=== PATIENT | male | born 1960 | race Two or more races ===

== ENCOUNTER → 2020-08-29 | Day surgery (SDC) | payer OTHER ==
[~2020-08-29] MED LIST: ASPIRIN81 MG PO; ATORVASTATIN CA10 MG PO; FENTANYL CITRATE/PF 100MCG/2 ML INJ ONE; FISH OIL 1,0001 EAC2 PO; JANUMET XR 50-1 EAC1 PO; MIDAZOLAM HCL 2 MG/2 ML VIAL ONE; MULTI-VITAMIN1 EACH PO; OR PHACO EYE KIT ONE; PREOP PHACO EYE KIT ONE; VITAMIN D PO
[2020-08-29 16:22] VITALS: BP 122/86
== END | disposition home or self-care (01) ==
LOC: OR 12:12 → EDBD 18:00
PROVIDERS: ATTEND Ophthalmology
DX: H25.11 Age-related nuclear cataract, right eye (principal); E11.9 Type 2 diabetes mellitus without complications; Z01.812 Encounter for preprocedural laboratory examination; Z11.59 Encounter for screening for other viral diseases; Z79.82 Long term (current) use of aspirin; Z79.84 Long term (current) use of oral hypoglycemic drugs
CPT/HCPCS: 36415; 66984; 82948; U0002; J2250; J3010; V2632

== ENCOUNTER → 2020-09-12 | Day surgery (SDC) | payer OTHER ==
[2020-09-12 10:35] VITALS: BP 102/75
== END | disposition home or self-care (01) ==
LOC: OR 08:38
PROVIDERS: ATTEND Ophthalmology
DX: H25.12 Age-related nuclear cataract, left eye (principal); E11.9 Type 2 diabetes mellitus without complications; E78.00 Pure hypercholesterolemia, unspecified; F41.9 Anxiety disorder, unspecified; Z01.812 Encounter for preprocedural laboratory examination; Z11.59 Encounter for screening for other viral diseases; Z79.82 Long term (current) use of aspirin; Z79.84 Long term (current) use of oral hypoglycemic drugs
CPT/HCPCS: 36415; 66984; 82948; J2250; J3010; U0002; V2632